=== PATIENT | female | born 1965 | race Caucasian/White ===

== ENCOUNTER → 2023-09-24 20:04 | Outpatient (REF) | payer OTHER, SELFPAY | LOC: MRI 20:04 | PROVIDERS: ATTENDING PHYSICIAN Psychiatry & Neurology Neurology; FAMILY PHYSICIAN Family Medicine | DX: M54.50 Low back pain, unspecified (principal) | CPT/HCPCS: 72148 ==

== ENCOUNTER → 2023-10-28 12:27 | Outpatient (REF) | payer OTHER, SELFPAY | LOC: HWRAD 12:27 | PROVIDERS: ATTENDING PHYSICIAN Psychiatry & Neurology Neurology; FAMILY PHYSICIAN Family Medicine | DX: M54.51 Vertebrogenic low back pain (principal) | CPT/HCPCS: 72110 ==